=== PATIENT | male | born 1935 | race Caucasian/White ===

== ENCOUNTER 2019-08-13 23:42 | Inpatient (IN) | payer OTHER ==
[~2019-08-13] VITALS: Ht 162.6 cm; Wt 64.4 kg
[2019-08-14 00:56] LABS: BASOPHIL % 0.2 % (0-2); PLATELET COUNT 271 x10^3mcL (130-400); RED CELL DISTRIBUTION WIDTH 12.4 % (11.5-14.5)
[2019-08-14 01:05] LABS: CALCIUM 9.8 mg/dL (8.5-10.1); CARBON DIOXIDE 29.6 mmol/L (21-32); CHLORIDE SERUM 91 mmol/L (98-107); CREATININE SERUM 0.8 mg/dL (0.7-1.3); GLUCOSE SERUM 147 mg/dL (74-106); POTASSIUM SERUM 4.5 mmol/L (3.5-5.1); SODIUM SERUM 128 mmol/L (136-145)
[2019-08-14 01:09] LABS: ALBUMIN 4.8 g/dL (3.4-5.0); ALKALINE PHOSPHATASE 113 U/L (46-116); ALT/SGPT 21 U/L (16-63); AST/SGOT 14 U/L (15-37)
[2019-08-14 01:11] LABS: TOTAL PROTEIN, SERUM 8.3 g/dL (6.4-8.2)
[2019-08-14 02:38] LABS: microscopic required? YES; urine erythrocyte TRACE (NEGATIVE)
[2019-08-14 04:33] LABS: CHOLESTEROL/HDL RATIO 3.6; MAGNESIUM 2.1 mg/dL (1.8-2.4); PHOSPHOROUS 4.2 mg/dL (2.5-4.9)
[2019-08-14] MEDS ORDERED: LEVOXYL0.1 MG PO (05:22)
[2019-08-14] MEDS ORDERED: PANTOPRAZOLE SO40 M1 PO (05:23)
[2019-08-14] MEDS ORDERED: EXFORGE1 TA2 (05:24)
[2019-08-14] MEDS ORDERED: RYT150 (05:29)
[2019-08-14] MEDS ORDERED: PROPRANOLOL HCL40 MG PO (05:29)
[2019-08-14] MEDS ORDERED: PLA75 PO (05:30)
[2019-08-14] MEDS ORDERED: CRESTOR10 M1 PO (05:31)
[2019-08-14] MEDS ORDERED: [UNRECOGNIZED DRUG - OTHER] (05:31)
[2019-08-14 11:43] VITALS: BP 119/63
[2019-08-14 17:38] VITALS: BP 119/58
[2019-08-14 20:36] VITALS: BP 143/48
[2019-08-15 05:18] VITALS: BP 124/58
[2019-08-15 07:23] LABS: BASOPHIL % 0.5 % (0-2); PLATELET COUNT 233 x10^3mcL (130-400); RED CELL DISTRIBUTION WIDTH 12.9 % (11.5-14.5)
[2019-08-15 07:30] LABS: CARBON DIOXIDE 23.7 mmol/L (21-32); CHLORIDE SERUM 101 mmol/L (98-107); CREATININE SERUM 0.8 mg/dL (0.7-1.3); GLUCOSE SERUM 108 mg/dL (74-106); MAGNESIUM 2.1 mg/dL (1.8-2.4); PHOSPHOROUS 3.2 mg/dL (2.5-4.9); POTASSIUM SERUM 3.8 mmol/L (3.5-5.1); SODIUM SERUM 134 mmol/L (136-145)
[2019-08-15 09:08] VITALS: BP 136/61
== END 2019-08-15 15:11 | disposition home or self-care (01) | DRG 388 ==
LOC: ED 23:42 → MU 08-14 03:50 → EDBD 08-14 03:50 → MU 08-14 06:06
PROVIDERS: Emergency Medicine; ADMIT General Practice
DX: K56.600 Partial intestinal obstruction, unspecified as to cause (principal); N17.0 Acute kidney failure with tubular necrosis; E87.1 Hypo-osmolality and hyponatremia; I10 Essential (primary) hypertension; K58.9 Irritable bowel syndrome, unspecified; K21.9 Gastro-esophageal reflux disease without esophagitis; E03.9 Hypothyroidism, unspecified; Z85.038 Personal history of other malignant neoplasm of large intestine; Z85.46 Personal history of malignant neoplasm of prostate; Z90.49 Acquired absence of other specified parts of digestive tract; Z23 Encounter for immunization; Z90.79 Acquired absence of other genital organ(s); Z82.49 Family history of ischemic heart disease and other diseases of the circulatory system; Z80.8 Family history of malignant neoplasm of other organs or systems
CPT/HCPCS: 90658; 90732; C9113; G0378; J1200; J1885; J2405; J2765; J7030; J8597; Q0092; Q9967